=== PATIENT | male | born 1955 | race Caucasian/White ===

== ENCOUNTER 2020-12-22 16:42 | Emergency (ER) | payer OTHER, SELFPAY ==
[2020-12-22 16:48] VITALS: BP 139/93; PULSE 79; RESP 18; TEMP 36.1; O2SAT 99; BMI 26.4
--- NOTE | 2020-12-22 16:52 | ED.RN ---
SRUTHI FUENTES FOR DRUG SCREEN
--- NOTE | 2020-12-22 17:17 | ED.VIS.LOWEX ---
HPI History of Present Illness Chief Complaint: Lower Extremity Injury Narrative Narrative: 75-year-old male presenting with left knee pain. He states he jumped from a wall to the ground which he estimates is about 40 inches. When he landed he believes that his left lower leg went laterally at the knee. Patient states he was ambulatory on the scene but states his legs felt wobbly at the knee. Patient states that he drove home and after getting home he is having a lot of trouble walking on it. He has his own crutches and came to the ER for evaluation. He states this did happen at work. He is filled out Worker's Compensation forms. [facility] Medical History Chronic pain Depression Home Medications duloxetine 60 mg PO DAILY 12/22/20 [History Last Taken Unknown] naltrexone 4.5 mg PO/SL DAILY 12/22/20 [History Last Taken Unknown] Allergy/AdvReac Type Severity Reaction Status Date / Time NSAIDS (Non-Steroidal AdvReac Nausea/Vom/ Verified 12/22/20 16:44 Anti-Inflamma Diarrhea Social History Smoking Status: Current every day smoker tobacco type: cigarettes ROS ROS ED Constitutional Constitutional ED: Denies fever(s) or subjective Eyes Eyes: Denies blurry vision or change in vision ENT ENT ED: Denies rhinorrhea or sore throat Cardiovascular Cardiovascular: Denies chest pain or palpitations Respiratory/Chest Respiratory/Chest: Denies cough or dyspnea Gastrointestinal Gastrointestinal: Denies abdominal pain, nausea or vomiting Genitourinary Genitourinary ED: Denies dysuria or hematuria Musculoskeletal Musculoskeletal: Reports other Details: Left knee pain Integumentary Denies rash Neurologic Neurologic: Denies headache(s) or paresthesias EXAM Physical Exam Const Vital Signs: 12/22/20 16:48 Temperature 97 F L Temperature Source Temporal Pulse Rate 79 Respiratory Rate 18 Blood Pressure 139/93 H Blood Pressure Mean 108 Pulse Ox 99 Positive well nourished General Appearance ED: NAD HEENT normocephalic and atraumatic Resp normal respiratory effort and clear to auscultation bilaterally Cardio regular rate and regular rhythm Extremity Extremity Narrative: Left knee tender to palpation medially. Pain is reproduced with valgus strain. There does not appear to be ligament laxity anteriorly or posteriorly. No bony tenderness. Left knee extensor mechanism intact. Neuro oriented x3 Sensorium / Orientation: alert Psych mental status grossly normal Skin no wounds Rashes: no rashes MDM MDM MDM Narrative Medical decision making narrative: 65-year-old male presenting with left knee pain after jumping off a 40 inch height. I obtained an x-ray of the left knee which shows no acute fracture or subluxation on my interpretation and the radiologist does agree. There is a small joint effusion. Patient does not appear to have any anterior posterior ligamentous laxity. He has pain with valgus strain. What he is describing is onset stable knee when he is walking. He likely has a ligamentous injury. Patient will be put in an Willian wrap and he has crutches already. I offered pain medication but patient declines. Patient will follow up with the [facility] to ensure resolution and to ensure the patient does not need further evaluation by orthopedics. Impression: 1. Left knee sprain Radiography Diagnostic Testing: Radiology Impression Knee X-Ray 12/22/20 17:39 IMPRESSION: No acute fracture. Joint effusion. Electronically Signed: Leyla Gutiérrez MD at 18:24 EDT Tel , Service support , Discharge Plan Triage Chief Complaint: Lower Extremity Injury ED Provider: Devyn Azul Dx/Rx/DC Orders Instructions: ED Knee Sprain, ED Sprain Knee Collateral Ligaments Prescriptions: No Action duloxetine 60 mg capsule,delayed release(DR/EC) 60 mg PO DAILY RF: 0 naltrexone 4.5 mg PO/SL DAILY RF: 0 Primary Care Provider: Noemy Hilario NP Referrals: Hilario Silva MD [STAFF PHYSICIAN] - As soon as possible [facility] [NON-STAFF] - 3-5 Days Noemy Hilario NP, PRECIPITATOR OPERATOR-C [Primary Care Provider] - Disposition Disposition: Home, Self Care Discharge Date/Time: 12/22/20 19:05
--- NOTE | 2020-12-22 17:39 | RAD_ITS ---
STUDY: X-RAY - LEFT KNEE REASON FOR EXAM: Male, 65 years old. knee pain jumped and now has lateral knee pain TECHNIQUE: 4 view(s) of the knee. COMPARISON: None. FINDINGS: Normal visualized distal femur. Normal visualized proximal tibia and fibula. Normal proximal tibiofibular articulation. Normal medial femorotibial compartment. Normal lateral femorotibial compartment. Normal patellofemoral articulation. There is joint effusion RAD/Knee 4 or More Views IMPRESSION: No acute fracture. Joint effusion. Electronically Signed: Leyla Gutiérrez MD at 18:24 EDT Tel , Service support ,
== END 2020-12-22 19:05 | disposition home or self-care (01) ==
PROVIDERS: Emergency Provider Student in an Organized Health Care Education/Training Program; PCP Nurse Practitioner Family
DX: S83.92XA Sprain of unspecified site of left knee, initial encounter (principal); W17.89XA Other fall from one level to another, initial encounter; Y93.89 Activity, other specified; Y92.89 Other specified places as the place of occurrence of the external cause; Y99.0 Civilian activity done for income or pay; G89.29 Other chronic pain; F32.9 Major depressive disorder, single episode, unspecified; F17.210 Nicotine dependence, cigarettes, uncomplicated; Z79.1 Long term (current) use of non-steroidal anti-inflammatories (NSAID); Z79.899 Other long term (current) drug therapy
CPT/HCPCS: 73564; 99282

== ENCOUNTER → 2023-03-01 | Outpatient (CLI) | payer OTHER, SELFPAY ==
[2023-03-01 15:51] LABS: Absolute Lymphocyte Count 2.21 X10^3/uL (0.83-4.51); Basophil# 0.06 X10^3/uL; Basophil% 0.7 % (0-1); Eosinophil# 0.16 X10^3/uL; Eosinophils% 1.8 % (0-5); Hematocrit 52.6 % (40-54); Lymphocyte # 2.21 X10^3/ul (0.83-4.51); Lymphocyte % 24.4 % (19-41); Mean Corp Hgb Conc 34.2 g/dL (32-36); Mean Corpuscular Hgb 32.3 pg (27.0-32.0); Mean Corpuscular Volume 94.3 fL (80-94); Mean Platelet Vol. 11.7 fl (6.2-12.0); Monocyte# 0.59 X10^3/uL; Monocyte% 6.5 % (0-10); NRBC Flagged by Analyzer 0 % (0-5); Neutrophil # 6.01 X10^3/uL (2.7-7.7); Neutrophil % 66.3 % (47-70); Platelet Count 186 K/mm3 (150-450); RBC Distribution Width SD 44.6 fl (35.1-43.9); Red Blood Count 5.58 M/mm3 (4.6-6.2); White Blood Count 9.1 K/mm3 (4.4-11.0)
[2023-03-01 15:54] LABS: POSITIVE COUNT NO; POSITIVE DIFFERENTIAL NO; POSITIVE MORPHOLOGY NO
[2023-03-01 16:12] LABS: Hemoglobin A1c 5.4 % (3.8-5.6)
[2023-03-01 16:18] LABS: AST(SGOT) 17 U/L (15-37); Alanine Aminotransfer ALT/SGPT 22 U/L (16-61); Albumin, Serum 3.7 g/dL (3.2-5.0); Alkaline Phosphatase 71 U/L (45-117); Anion Gap 5 (5-15); BUN 16 mg/dL (7-18); BUN/Creat Ratio 17.9 RATIO (10-20); Calcium,Total 8.6 mg/dL (8.5-10.1); Chloride 104 mmol/L (98-107); Cholesterol 173 mg/dL (200); Creatinine, Serum 0.89 mg/dL (0.70-1.30); EST Glomerular Filtration Rate 90 mL/min (>60); Est Glom Filt Rate - Afr Amer 109 mL/min (>60); Globulin 3.8 g/dL (2.2-4.2); Glucose 94 mg/dL (74-106); High Density Lipoprotein 46 mg/dL; PSA,Total - Annual Screen 0.85 ng/mL (0.00-4.00); Potassium 4.1 mmol/L (3.5-5.1); Protein, Total 7.5 g/dL (6.4-8.2); Sodium Level 137 mmol/L (136-145); Thyroid Stim Hormone (TSH) 1.87 uIU/mL (0.358-3.74); Triglycerides 127 mg/dL; Very Low Density Lipoprotein 25 mg/dL (5-40)
== END | disposition home or self-care (01) ==
LOC: MFPLAB 12:05
PROVIDERS: Family Medicine; PCP Nurse Practitioner Family; Visit Provider Nurse Practitioner Family
DX: Z13.0 Encounter for screening for diseases of the blood and blood-forming organs and certain disorders involving the immune mechanism (principal); E78.2 Mixed hyperlipidemia; Z13.228 Encounter for screening for other metabolic disorders; Z12.5 Encounter for screening for malignant neoplasm of prostate; Z13.1 Encounter for screening for diabetes mellitus
CPT/HCPCS: 36415; 80053; 80061; 83036; 84153; 84443; 85025; G0103